=== PATIENT | female | born 1955 | race Two or more races ===

== ENCOUNTER 2020-02-15 20:29 | Inpatient (IN) | payer MEDICARE, OTHER ==
[~2020-02-15] VITALS: Ht 157.5 cm; Wt 78.3 kg
[2020-02-15 21:10] LABS: Basophils # (auto) 0 10 ^3/uL (0-0.2); Basophils % (auto) 0.7 % (0.0-2.0); Eosinophils # (auto) 0.2 10 ^3/uL (0-0.8); Eosinophils % (auto) 3.2 % (0.0-7.0); Hematocrit 27.1 % (36.0-46.0); Hemoglobin 9.1 g/dL (12.2-16.2); Lymphocytes # (auto) 1.6 10 ^3/uL (0.4-5.4); Lymphocytes % (auto) 23.5 % (10.0-50.0); Mean Corpuscular Hemoglobin 29.1 pg (28.0-32.0); Mean Corpuscular Hgb Conc. 33.5 g/dL (32.0-36.0); Mean Corpuscular Volume 86.6 fL (80.0-100.0); Monocytes # (auto) 0.3 10 ^3/uL (0-1.3); Neutrophils # (auto) 4.5 10 ^3/uL (1.6-8.6); Neutrophils % (auto) 67.6 % (37.0-80.0); Nucleated Red Blood Cells % 0.1 %; Platelet Count (auto) 418 10^3/uL (140-450); Red Blood Cells 3.13 10^6/uL (4.0-5.20); Red Cell Distribution Width 14.1 % (11.8-14.3); White Blood Cell 6.7 10^3/uL (4.4-10.8)
[2020-02-15 21:23] LABS: Albumin 2.5 g/dL (3.4-5.0); Calcium 8.1 mg/dL (8.5-10.1); Potassium 4.8 mmol/L (3.5-5.1)
[2020-02-15 21:28] LABS: BUN/Creatinine Ratio 15.6; Bilirubin, Total 0.3 mg/dL (0.2-1.0); Total Protein 6.6 g/dL (6.4-8.2)
[2020-02-15] MEDS ORDERED: HYDROcodone-ACET 5/325MG TAB PO ONE (21:30)
[2020-02-15] MEDS ORDERED: ALBUTEROL SULF 2.5 MG/0.5ML(0.5%) NEB SOLN NEB ONE (21:30)
[2020-02-15] MEDS ORDERED: IPRATROPIUM BROM 0.5 MG/2.5ML INH SOL NEB ONE (21:30)
[2020-02-15 22:00] LABS: Urine Bacteria MOD /hpf (None Seen); Urine Blood TRACE /uL (Negative); Urine Hyaline Cast MOD /lpf (0 - 2); Urine Mucus FEW (None Seen); Urine Specific Gravity 1.026 (1.001-1.035); Urine WBC 15 /hpf (0 - 5)
[2020-02-16] VITALS (7 sets, daily range): BP systolic 131–155; BP diastolic 66–85
[2020-02-16] MEDS ORDERED: MORPHINE SULF INJ 2 MG/ML SYRINGE 1ML IV PRN (01:30)
[2020-02-16] MEDS ORDERED: HYDROcodone-ACET 5/325MG TAB PO PRN (01:30)
[2020-02-16] MEDS ORDERED: ONDANSETRON HCL 4 MG/2 ML VIAL IV PRN (01:30)
[2020-02-16] MEDS ORDERED: DEXTROSE (50%) 50ML SYRG IV PRN ×2 (01:30→12:45)
[2020-02-16] MEDS ORDERED: DOCUSATE SOD 100 MG CAP PO PRN (01:30)
[2020-02-16] MEDS ORDERED: METF-370 PO (03:23)
[2020-02-16] MEDS ORDERED: METF-371 PO (03:23)
[2020-02-16] MEDS ORDERED: HYDR25TA4 PO (03:26)
[2020-02-16] MEDS ORDERED: LISI-646 PO (03:26)
[2020-02-16] MEDS ORDERED: INSU75IN2 SC (03:26)
[2020-02-16] MEDS ORDERED: PREG150C PO (03:26)
[2020-02-16] MEDS ORDERED: GABA100C9 PO (03:26)
[2020-02-16] MEDS ORDERED: ROSU40TA PO (03:26)
[2020-02-16] MEDS ORDERED: ASP81EC PO (03:26)
[2020-02-16] MEDS ORDERED: DULO60CA PO (03:26)
[2020-02-16] MEDS: SODIUM CHLORIDE 0.9% 1,000 ML IV SCH ×3 (03:43→21:21)
[2020-02-16] MEDS: cefTRIAXone 1GM/50ML D5W 50 ML IV SCH (04:32)
[2020-02-16] MEDS: ACCU-CHEK COMFORT CURVE STRIP VI SCH ×5 (04:32→22:25)
[2020-02-16] MEDS: InsuLIN REG 1unit/0.01ml Soln (100units/ml) SC SCH ×5 (04:34→22:36)
--- NOTE | 2020-02-16 06:51 | NUR ---
Closing note pt resting in semi fowlers, HOB elevated at 30 degrees. pt does not show signs and symptoms of discomfort. resp are even and non labored on 2Lnc. bed in low locked position, call light within reach.
--- NOTE | 2020-02-16 07:35 | NUR ---
PT ASSESSED FOR PRN HHN TX. PT IS ON 2LNC, SPO2 99%, HR 87, RR 16. NO S/S OF RESPIRATORY DISTRESS. PRN TX NOT INDICATED WILL CONTINUE TO MONITOR.
--- NOTE | 2020-02-16 08:00 | NUR ---
ASSESSMENT NOTE PT IS ALERT ORIENTED X4, RESTING IN BED IN LOWFOWLER POSITION, SELF REPOSITION, ABLE TO VERBALIS HER DEMANDS, PAIN 0/10, OXYGEN 2 L NC, PT GET SHORTNESS OF BREATH ON EVERSION, BED SIDE COMMODE AT BED SIDE, FALL RISK PRECAUTIONS, CALL LIGHT WITHIN REACH
[2020-02-16 08:11] LABS: Basophils # (auto) 0 10 ^3/uL (0-0.2); Hemoglobin 7.9 g/dL (12.2-16.2); Monocytes # (auto) 0.4 10 ^3/uL (0-1.3); Monocytes % (auto) 6.3 % (0.0-12.0); White Blood Cell 6.6 10^3/uL (4.4-10.8)
[2020-02-16 08:15] LABS: Basophils % (auto) 0.7 % (0.0-2.0); Eosinophils # (auto) 0.2 10 ^3/uL (0-0.8); Eosinophils % (auto) 3.1 % (0.0-7.0); Hematocrit 22.9 % (36.0-46.0); Lymphocytes # (auto) 1.6 10 ^3/uL (0.4-5.4); Lymphocytes % (auto) 23.8 % (10.0-50.0); Mean Corpuscular Hemoglobin 29.4 pg (28.0-32.0); Mean Corpuscular Hgb Conc. 34.4 g/dL (32.0-36.0); Mean Corpuscular Volume 85.7 fL (80.0-100.0); Neutrophils # (auto) 4.3 10 ^3/uL (1.6-8.6); Neutrophils % (auto) 66.1 % (37.0-80.0); Platelet Count (auto) 378 10^3/uL (140-450); Red Blood Cells 2.67 10^6/uL (4.0-5.20); Red Cell Distribution Width 13.9 % (11.8-14.3)
[2020-02-16 08:37] LABS: Calcium 7.7 mg/dL (8.5-10.1); Potassium 4.3 mmol/L (3.5-5.1)
[2020-02-16 08:40] LABS: BUN/Creatinine Ratio 15.4
[2020-02-16] MEDS ORDERED: PNEUMOCOCCAL VACC POLYS 25 MCG/0.5 ML VIAL IM ONE (09:00)
[2020-02-16] MEDS: LISINOPRIL 20 MG TAB PO SCH (09:48)
[2020-02-16] MEDS ORDERED: ATORVASTATIN 20 MG TAB PO SCH (10:00)
--- NOTE | 2020-02-16 11:35 | NUR ---
DR BEAULIEU AT BED SIDE FOLLOWING UP ON PT WITH NEW ORDERS
[2020-02-16 11:58] LABS: INR 0.99 (0.9-1.15); Partial Thromboplastin Time 29.9 sec (23.64-32.05)
[2020-02-16] MEDS: IPRATROPIUM BROM 0.5 MG/2.5ML INH SOL NEB PRN (12:03)
[2020-02-16] MEDS: ALBUTEROL SULF 2.5 MG/0.5ML(0.5%) NEB SOLN NEB PRN (12:03)
--- NOTE | 2020-02-16 12:05 | NUR ---
PT IS VERY SHORT OF BREATH RT AT BED SIDE WITH BREATHING TREATMENT
--- NOTE | 2020-02-16 12:39 | NUR ---
INCENTIVE SPIROMETR EDUCATED TO PT OF HOW TO USE IT AND WHY, PT VERBALIS UNDERSTANDING
--- NOTE | 2020-02-16 16:43 | NUR ---
HI D DIMER CALLED DR BEAULIEU WITH THE RESULTS, NEW ORDERS OBTAIN
[2020-02-16 18:07] LABS: Hematocrit 25.7 % (36.0-46.0); Hemoglobin 8.5 g/dL (12.2-16.2)
--- NOTE | 2020-02-16 18:09 | NUR ---
PT CONTINUE STABLE, CONTINUE MONITORING
--- NOTE | 2020-02-16 19:20 | NUR ---
Opening Shift Note Assumed care of patient. Patient awake and alert. No S/S of distress or pain. Oxygen via nasal cannula in place at 2lpm. Instructed on POC and to call for assist PRN, will continue to monitor for changes Q1hr and PRN. Bed locked in lowest position and bed rails up x2. Call light within reach.
[2020-02-16] MEDS: ATORVASTATIN 20 MG TAB PO SCH (22:25)
[2020-02-17] MEDS: cefTRIAXone 1GM/50ML D5W 50 ML IV SCH (02:18)
[2020-02-17 05:00] VITALS: BP 148/79
[2020-02-17] MEDS: ACCU-CHEK COMFORT CURVE STRIP VI SCH ×3 (06:32→17:50)
[2020-02-17 06:38] LABS: Basophils # (auto) 0.1 10 ^3/uL (0-0.2); Eosinophils # (auto) 0.3 10 ^3/uL (0-0.8); Eosinophils % (auto) 4.6 % (0.0-7.0); Hemoglobin 8.2 g/dL (12.2-16.2); Lymphocytes # (auto) 2.3 10 ^3/uL (0.4-5.4); Monocytes # (auto) 0.5 10 ^3/uL (0-1.3); Neutrophils # (auto) 4.4 10 ^3/uL (1.6-8.6); White Blood Cell 7.6 10^3/uL (4.4-10.8)
[2020-02-17 06:41] LABS: Basophils % (auto) 0.9 % (0.0-2.0); Hematocrit 23.9 % (36.0-46.0); Mean Corpuscular Hemoglobin 29.9 pg (28.0-32.0); Mean Corpuscular Hgb Conc. 34.4 g/dL (32.0-36.0); Mean Corpuscular Volume 86.9 fL (80.0-100.0); Monocytes % (auto) 6.8 % (0.0-12.0); Neutrophils % (auto) 57.7 % (37.0-80.0); Platelet Count (auto) 375 10^3/uL (140-450); Red Blood Cells 2.75 10^6/uL (4.0-5.20); Red Cell Distribution Width 14.4 % (11.8-14.3)
[2020-02-17] MEDS: InsuLIN REG 1unit/0.01ml Soln (100units/ml) SC SCH ×3 (06:56→18:09)
[2020-02-17] MEDS: SODIUM CHLORIDE 0.9% 1,000 ML IV SCH ×3 (08:00→20:30)
[2020-02-17 09:00] VITALS: BP 135/62
[2020-02-17] MEDS ORDERED: AZITHROMYCIN 500MG/ 250ML 250 ML IV ONE (09:15)
[2020-02-17] MEDS: LISINOPRIL 20 MG TAB PO SCH (09:40)
[2020-02-17] MEDS: methylPREDNISolone SOD SUCC 125 MG/2 ML VL IV SCH ×2 (09:42→21:27)
[2020-02-17] MEDS: BUDESONIDE (INHALATION) 0.5 MG/2 ML NEB NEB SCH ×2 (10:09→22:27)
[2020-02-17] MEDS: IPRATROPIUM BROM 0.5 MG/2.5ML INH SOL NEB PRN ×2 (10:09→22:27)
[2020-02-17] MEDS: ALBUTEROL SULF 2.5 MG/0.5ML(0.5%) NEB SOLN NEB PRN ×2 (10:09→22:27)
--- NOTE | 2020-02-17 12:00 | NUR ---
Patient having SOB, O2 sats 98%, RT paged, sat patient up on side of bed per patient breathing was easier patient stated she felt relief. MD Cai informed. No new orders received will continue to monitor .
[2020-02-17 13:00] VITALS: BP 143/61
[2020-02-17 17:00] VITALS: BP 142/63
--- NOTE | 2020-02-17 17:47 | NUR ---
THORACENTESIS DOCTOR KENDRICK AT BEDSIDE THORACENTESIS COMPLETE PER MD "10 CC OUT OF CLOTTED DEBRIS" POST VITALS 157/98 B/P 98 HR 20 RR 100% O2 ON ROOM AIR. V/S STABLE,NO S/S OF DISTRESS NOTED. NEW ORDERS RECEIVED SEE EMR FOR ORDERS.
--- NOTE | 2020-02-17 18:10 | NUR ---
RECEIVED CALL BACK FROM MEDICAL CARE ADMINISTRATOR HOSPITALIST DOCTOR AOUN. WINKLER INFORMED OF BLOOD GLUCOSE READING OF 417 AND REPEAT 443. NEW ORDERS RECEIVED SEE EMR FOR ORDERS.
[2020-02-17] MEDS ORDERED: DEXTROSE (50%) 50ML SYRG IV PRN ×2 (18:15→20:30)
[2020-02-17] MEDS ORDERED: InsuLIN REG 1unit/0.01ml Soln (100units/ml) IV ONE (18:15)
--- NOTE | 2020-02-17 19:30 | NUR ---
Opening Shift Note Assumed care of patient, awake and alert. No S/S of distress/SOB or pain. Insructed on POC and to callfor assist PRN, will continue to monitor for changes Q1hr and PRN. Fall and safety precautions in place. Call light within reach.
[2020-02-17] MEDS ORDERED: ACCU-CHEK COMFORT CURVE STRIP VI SCH (20:00)
[2020-02-17] MEDS ORDERED: InsuLIN REG 1unit/0.01ml Soln (100units/ml) SC SCH (20:00)
--- NOTE | 2020-02-17 20:00 | NUR ---
HOSPITALIST Paged construction manager hospitalist regarding blood sugar of 450, 462. 15 units of regular insulin given as ordered. Awaiting call back
--- NOTE | 2020-02-17 20:25 | NUR ---
HOSPITALIST Received call back from on-call hospitalist, Dr. Lopez. New orders received, read back and verified. Will input and carry out
[2020-02-17] MEDS: ATORVASTATIN 20 MG TAB PO SCH (21:28)
[2020-02-17 22:00] VITALS: BP 160/82
[2020-02-17] MEDS: INSULIN LANTUS (GLARGINE) 1 /0.01ml (100units/ml) SC SCH (22:08)
[2020-02-18] MEDS: ACCU-CHEK COMFORT CURVE STRIP VI SCH ×7 (00:30→23:43)
[2020-02-18] MEDS: InsuLIN REG 1unit/0.01ml Soln (100units/ml) SC SCH ×7 (00:32→23:44)
[2020-02-18] MEDS: cefTRIAXone 1GM/50ML D5W 50 ML IV SCH (01:48)
[2020-02-18] MEDS: SODIUM CHLORIDE 0.9% 1,000 ML IV SCH ×2 (03:36→08:24)
[2020-02-18 05:00] VITALS: BP 132/66
[2020-02-18 05:19] LABS: Basophils # (auto) 0 10 ^3/uL (0-0.2); Basophils % (auto) 0.1 % (0.0-2.0); Eosinophils # (auto) 0 10 ^3/uL (0-0.8); Lymphocytes # (auto) 0.5 10 ^3/uL (0.4-5.4); Monocytes # (auto) 0.1 10 ^3/uL (0-1.3); Neutrophils # (auto) 7.8 10 ^3/uL (1.6-8.6)
[2020-02-18 05:21] LABS: Hematocrit 24.8 % (36.0-46.0); Hemoglobin 8.3 g/dL (12.2-16.2); Lymphocytes % (auto) 5.4 % (10.0-50.0); Mean Corpuscular Hemoglobin 29.2 pg (28.0-32.0); Mean Corpuscular Hgb Conc. 33.4 g/dL (32.0-36.0); Mean Corpuscular Volume 87.5 fL (80.0-100.0); Monocytes % (auto) 1.1 % (0.0-12.0); Neutrophils % (auto) 93.4 % (37.0-80.0); Platelet Count (auto) 387 10^3/uL (140-450); Red Blood Cells 2.83 10^6/uL (4.0-5.20); Red Cell Distribution Width 14.1 % (11.8-14.3); White Blood Cell 8.4 10^3/uL (4.4-10.8)
[2020-02-18] MEDS: ACETAMINOPHEN 325 MG TAB PO PRN (05:56)
--- NOTE | 2020-02-18 08:25 | NUR ---
NS HELD. SURG TECH REPORTS ORDER WAS FOR 12 HRS AND TO DC AT 0830.
[2020-02-18 09:00] VITALS: BP 136/67
[2020-02-18] MEDS: AZITHROMYCIN 500MG/ 250ML 250 ML IV SCH (09:15)
[2020-02-18] MEDS: methylPREDNISolone SOD SUCC 125 MG/2 ML VL IV SCH ×2 (09:16→21:22)
[2020-02-18] MEDS: LISINOPRIL 20 MG TAB PO SCH (09:17)
--- NOTE | 2020-02-18 10:03 | NUR ---
DR GEORGES CAME AND DISCUSSED PATIENT, NEW ORDERS TO SEND URINE FOR LAB WORK AND ACCURATE INTAKE AND OUTPUT.
[2020-02-18] MEDS ORDERED: FUROSEMIDE 40 MG/4 ML VIAL IV SCH (10:30)
[2020-02-18] MEDS: IPRATROPIUM BROM 0.5 MG/2.5ML INH SOL NEB PRN ×2 (10:37→22:39)
[2020-02-18] MEDS: ALBUTEROL SULF 2.5 MG/0.5ML(0.5%) NEB SOLN NEB PRN ×2 (10:37→22:39)
[2020-02-18] MEDS: BUDESONIDE (INHALATION) 0.5 MG/2 ML NEB NEB SCH ×2 (10:37→22:39)
--- NOTE | 2020-02-18 10:40 | NUR ---
Respiratory note: PRN MED-NEB ADMINISTERED WITH 1000 PULMICORT MED FOR SOME SOB.
--- NOTE | 2020-02-18 10:48 | NUR ---
DR BEAULIEU SAW PATIENT AND DISCUSSED POC, NEW ORDERS TO GET ECHO READ. CALLED PBX AND PAGED DR FLORES, AWAITING CALL BACK.
--- NOTE | 2020-02-18 10:53 | NUR ---
DR FLORES CALLED BACK, REPORTS HE WILL READ ECHO THIS MORNING.
--- NOTE | 2020-02-18 11:05 | NUR ---
[facility] CALLED, THEY REPORT THEY WILL BE UP TO DO V/Q SCAN.
[2020-02-18 11:52] VITALS: BP 122/96
[2020-02-18] MEDS ORDERED: FUROSEMIDE 100 MG/10ML VIAL IV ONE (13:15)
[2020-02-18 14:03] LABS: BUN/Creatinine Ratio 17.7; Calcium 8.3 mg/dL (8.5-10.1); Potassium 4.2 mmol/L (3.5-5.1)
--- NOTE | 2020-02-18 14:23 | NUR ---
NOTIFIED DR BEAULIEU OF V/Q SCAN AND MD VIC REPORTS TO START PT ON LOVENOX 1MG/KG BID.
[2020-02-18] MEDS ORDERED: ENOXAPARIN SOD 80 MG/0.8ML SYRINGE SC ONE (14:40)
[2020-02-18 17:00] VITALS: BP 150/82
[2020-02-18] MEDS: ENOXAPARIN SOD 80 MG/0.8ML SYRINGE SC SCH (21:22)
[2020-02-18] MEDS: ATORVASTATIN 20 MG TAB PO SCH (21:23)
[2020-02-18 22:00] VITALS: BP 154/74
[2020-02-18] MEDS: INSULIN LANTUS (GLARGINE) 1 /0.01ml (100units/ml) SC SCH (22:11)
[2020-02-19] MEDS: cefTRIAXone 1GM/50ML D5W 50 ML IV SCH (01:34)
[2020-02-19] MEDS: ACETAMINOPHEN 325 MG TAB PO PRN (01:49)
[2020-02-19] MEDS: InsuLIN REG 1unit/0.01ml Soln (100units/ml) SC SCH ×5 (03:47→20:36)
[2020-02-19] MEDS: ACCU-CHEK COMFORT CURVE STRIP VI SCH ×5 (03:47→20:00)
[2020-02-19 05:00] VITALS: BP 124/74
[2020-02-19 06:12] LABS: Albumin 2.3 g/dL (3.4-5.0); Calcium 8.1 mg/dL (8.5-10.1)
[2020-02-19 06:16] LABS: BUN/Creatinine Ratio 20.7; Bilirubin, Total 0.2 mg/dL (0.2-1.0); Phosphorus 5.1 mg/dL (2.5-4.90); Total Protein 6.2 g/dL (6.4-8.2)
[2020-02-19] MEDS: BUDESONIDE (INHALATION) 0.5 MG/2 ML NEB NEB SCH ×2 (07:30→18:58)
--- NOTE | 2020-02-19 07:40 | NUR ---
Opening Shift Note Assumed care of patient. Patient is awake, alert, and oriented x4. Pt is resting in bed. No S/S of respiratory distress, respirations are regular and non labored. Patient on O2 2 lpm NC, does not state any pain or discomfort. Call light is within reach, bed brakes locked, bed in lower position, 2 side rails up. ID and fall wrist bands are present. Patient was instructed on POC and to call for assistance as needed. Will continue to monitor for changes Q1hr and PRN.
[2020-02-19 08:00] VITALS: BP 146/75
[2020-02-19 08:54] VITALS: BP 146/75
[2020-02-19] MEDS: ENOXAPARIN SOD 80 MG/0.8ML SYRINGE SC SCH (10:15)
[2020-02-19] MEDS: AZITHROMYCIN 500MG/ 250ML 250 ML IV SCH (10:15)
[2020-02-19] MEDS: FUROSEMIDE 100 MG/10ML VIAL IV SCH (10:16)
[2020-02-19] MEDS: LISINOPRIL 20 MG TAB PO SCH (10:17)
[2020-02-19] MEDS: methylPREDNISolone SOD SUCC 125 MG/2 ML VL IV SCH ×2 (10:17→21:30)
--- NOTE | 2020-02-19 10:36 | NUR ---
Dr. Nona Cai at bedside Discussing plan of care with patient and this RN. All questions and concerns addressed. Will continue to monitor Q1 hour and PRN.
[2020-02-19] MEDS ORDERED: ERGOCALCIFEROL 50,000 UNIT(1.25MG) CAP PO SCH (11:00)
[2020-02-19 11:03] VITALS: BP 144/71
--- NOTE | 2020-02-19 11:42 | NUR ---
Dr. Bob at nurse station Discussing plan of care with this RN. MD states patient should not have contrast due to decreased kidney function. Will continue to monitor Q1 hour and PRN.
[2020-02-19] MEDS: CALCIUM ACETATE 667 MG CAP PO SCH ×2 (12:10→17:38)
[2020-02-19 16:42] VITALS: BP 152/78
[2020-02-19] MEDS: IPRATROPIUM BROM 0.5 MG/2.5ML INH SOL NEB PRN (18:57)
[2020-02-19] MEDS: ALBUTEROL SULF 2.5 MG/0.5ML(0.5%) NEB SOLN NEB PRN (18:57)
--- NOTE | 2020-02-19 19:15 | NUR ---
Closing Note Report given to shift boss RN. No signs or symptoms of distress noted at this time.
[2020-02-19] MEDS: ATORVASTATIN 20 MG TAB PO SCH (21:32)
[2020-02-19] MEDS: INSULIN LANTUS (GLARGINE) 1 /0.01ml (100units/ml) SC SCH (21:33)
[2020-02-19 21:42] VITALS: BP 129/57
[2020-02-20] MEDS: ACCU-CHEK COMFORT CURVE STRIP VI SCH ×7 (04:01→23:50)
[2020-02-20] MEDS: cefTRIAXone 1GM/50ML D5W 50 ML IV SCH (04:01)
[2020-02-20] MEDS: InsuLIN REG 1unit/0.01ml Soln (100units/ml) SC SCH ×7 (04:21→23:50)
[2020-02-20 05:00] VITALS: BP 138/73
[2020-02-20 06:29] LABS: Calcium 8.1 mg/dL (8.5-10.1)
[2020-02-20 06:35] LABS: Albumin 2.2 g/dL (3.4-5.0); BUN/Creatinine Ratio 24.8; Bilirubin, Total 0.2 mg/dL (0.2-1.0); Total Protein 5.8 g/dL (6.4-8.2)
[2020-02-20] MEDS: IPRATROPIUM BROM 0.5 MG/2.5ML INH SOL NEB PRN ×2 (07:10→22:12)
[2020-02-20] MEDS: BUDESONIDE (INHALATION) 0.5 MG/2 ML NEB NEB SCH ×2 (07:10→22:12)
[2020-02-20] MEDS: ALBUTEROL SULF 2.5 MG/0.5ML(0.5%) NEB SOLN NEB PRN ×2 (07:10→22:12)
--- NOTE | 2020-02-20 07:16 | NUR ---
Opening Shift Note Assumed care of patient, patient is sitting in bed awake and alert. No S/S of distress or SOB, denies any pain at the moment. Instructed on POC and to call for assistance call light within reach. Will continue to monitor for changes Q1hr and PRN. Fall and safety precautions in place.
[2020-02-20] MEDS: CALCIUM ACETATE 667 MG CAP PO SCH ×3 (07:52→17:24)
[2020-02-20 09:00] VITALS: BP 148/85
[2020-02-20] MEDS: AZITHROMYCIN 250 MG TAB PO SCH (09:35)
[2020-02-20] MEDS: FUROSEMIDE 100 MG/10ML VIAL IV SCH (09:35)
[2020-02-20] MEDS: methylPREDNISolone SOD SUCC 125 MG/2 ML VL IV SCH ×2 (09:36→22:28)
[2020-02-20] MEDS: LISINOPRIL 20 MG TAB PO SCH (09:36)
[2020-02-20] MEDS ORDERED: ENOXAPARIN SOD 80 MG/0.8ML SYRINGE SC SCH (10:00)
--- NOTE | 2020-02-20 10:10 | NUR ---
Dr. Cai at Bedside.
[2020-02-20] MEDS: APIXABAN 5 MG TAB PO SCH ×2 (11:00→22:28)
--- NOTE | 2020-02-20 12:20 | NUR ---
Incentive Spirometer Educated patient in proper use of incentive spirometer, patient returned demonstration.
[2020-02-20 13:00] VITALS: BP 160/91
--- NOTE | 2020-02-20 14:39 | NUR ---
assessment Patient is a 64 year old female who is alert and oriented. Patients cognitive abilities are intact. Prior to admission patient lived home alone and functioned independently. Patient informed me she is able to care for her own ADLs. Per patient she will return home to her prior living arrangements post discharge and family will transport her home. Patient informed me she has no DME and needs a fww. Patient will benefit from a walker on discharge. Patients PCP is Dr Gann in [place]. Patient informed me she feels safe returning home on discharge. Patient may also benefit from home health safety on discharge. I informed patient she has a right to speak to a social science analyst regarding all care. I informed patient she has a right to participate in any and all discharge planning. Patient does not have a POA and advanced directive. I have offered patient information on POA and advanced directives. I informed the patient the advantages and benefits of having an Advanced Directive. Patient verbalized understanding and agreed to discharge plan. Addendum: 02/20/20 at 1453 by Radha BAIRD Amended: Links added.
--- NOTE | 2020-02-20 15:51 | NUR ---
NUTRITION ASSESSMENT NOTES Please refer to link notes of nutrition screen form filed under the intervention section of the plan of care for further details. Est. Energy Needs: 5100-8977 kcal (17-20 kcal/kg BW). Est. Protein Needs: 70-87 gms/day (1.2-1.5 gms/kg Adj.BW). Will continue to monitor pertinent labs and reassess nutrient need prn Addendum: 02/20/20 at [address] Amended: Links added.
[2020-02-20 16:40] VITALS: BP 136/77
--- NOTE | 2020-02-20 19:30 | NUR ---
Closing Note Report given to night shift supervisor RN. No signs or symptoms of distress noted at this time.
[2020-02-20 21:05] VITALS: BP 154/90
[2020-02-20] MEDS: ATORVASTATIN 20 MG TAB PO SCH (22:29)
[2020-02-20] MEDS: INSULIN LANTUS (GLARGINE) 1 /0.01ml (100units/ml) SC SCH (22:33)
[2020-02-21] MEDS: cefTRIAXone 1GM/50ML D5W 50 ML IV SCH (02:10)
[2020-02-21] MEDS: InsuLIN REG 1unit/0.01ml Soln (100units/ml) SC SCH ×3 (03:56→14:07)
[2020-02-21] MEDS: ACCU-CHEK COMFORT CURVE STRIP VI SCH ×3 (03:57→12:00)
--- NOTE | 2020-02-21 05:09 | NUR ---
Paged hospitalist to notify blood pressure is elevated and patient has no PRN for BP. Awaiting phone call.
[2020-02-21 05:18] VITALS: BP 183/92
--- NOTE | 2020-02-21 05:20 | NUR ---
Paged hospitalist to notify blood pressure is elevated and patient has no PRN for BP. Awaiting phone call.
[2020-02-21 05:27] VITALS: BP 183/92
--- NOTE | 2020-02-21 05:53 | NUR ---
Spoke to hospitaldarryl Devlin and notified him of patient blood pressure is 183/92, hr 87. Received order from hospitaldarryl Devlin to give one time dose of clonidine 0.1mg po. read back and confirmed. Will carry out.
[2020-02-21] MEDS ORDERED: cloNIDine HCL 0.1 MG TAB PO ONE (06:00)
[2020-02-21 06:57] LABS: Potassium 4.1 mmol/L (3.5-5.1)
[2020-02-21 07:03] LABS: Albumin 2.3 g/dL (3.4-5.0); BUN/Creatinine Ratio 27.1; Bilirubin, Total 0.2 mg/dL (0.2-1.0); Calcium 7.9 mg/dL (8.5-10.1); Total Protein 5.9 g/dL (6.4-8.2)
[2020-02-21 08:00] VITALS: BP 137/80
[2020-02-21] MEDS: CALCIUM ACETATE 667 MG CAP PO SCH ×2 (08:34→13:12)
[2020-02-21 09:00] VITALS: BP 137/80
[2020-02-21] MEDS: IPRATROPIUM BROM 0.5 MG/2.5ML INH SOL NEB PRN (09:48)
[2020-02-21] MEDS: ALBUTEROL SULF 2.5 MG/0.5ML(0.5%) NEB SOLN NEB PRN (09:48)
[2020-02-21] MEDS: BUDESONIDE (INHALATION) 0.5 MG/2 ML NEB NEB SCH (09:49)
[2020-02-21] MEDS: FUROSEMIDE 100 MG/10ML VIAL IV SCH (10:41)
[2020-02-21] MEDS: methylPREDNISolone SOD SUCC 125 MG/2 ML VL IV SCH (10:42)
[2020-02-21] MEDS: APIXABAN 5 MG TAB PO SCH (10:43)
[2020-02-21] MEDS: LISINOPRIL 20 MG TAB PO SCH (10:43)
[2020-02-21] MEDS: AZITHROMYCIN 250 MG TAB PO SCH (10:46)
[2020-02-21 12:54] VITALS: BP 137/80
[2020-02-21 13:00] VITALS: BP 161/98
--- NOTE | 2020-02-21 15:25 | NUR ---
PATIENT DISCHARGED HOME PER DOCTOR'S ORDER. COPIES OF DISCHARGE INSTRUCTION, FOLLOW UP, AND PRESCRIPTION GIVEN TO PATIENT. PATIENT VERBALIZED UNDERSTANDING. PATIENT'S OWN MEDICATION PICKED UP FROM PHARMACY AND GIVEN TO PATIENT ON DISCHARGE. PERIPHERAL IV DISCONTINUED AND PRESSURE DRESSING APPLIED.
== END 2020-02-21 15:25 | disposition home or self-care (01) | DRG 186 ==
LOC: ER 20:29 → OVERFLOW 20:30 → EAST 02-16 02:42
PROVIDERS: ADMIT Hospitalist; ATTEND Family Medicine
PROC: 0W9B3ZZ Drainage of Left Pleural Cavity, Percutaneous Approach (ICD-10-PCS; principal; 2020-02-17)
DX: J94.2 Hemothorax (principal); N17.0 Acute kidney failure with tubular necrosis; I26.99 Other pulmonary embolism without acute cor pulmonale; I31.3 Pericardial effusion (noninflammatory); N39.0 Urinary tract infection, site not specified; J98.11 Atelectasis; I13.0 Hypertensive heart and chronic kidney disease with heart failure and stage 1 through stage 4 chronic kidney disease, or unspecified chronic kidney disease; J90 Pleural effusion, not elsewhere classified; R06.03 Acute respiratory distress; D64.9 Anemia, unspecified; E11.40 Type 2 diabetes mellitus with diabetic neuropathy, unspecified; I50.9 Heart failure, unspecified; E86.0 Dehydration; D63.1 Anemia in chronic kidney disease; R80.9 Proteinuria, unspecified; S20.219A Contusion of unspecified front wall of thorax, initial encounter; E78.00 Pure hypercholesterolemia, unspecified; E11.22 Type 2 diabetes mellitus with diabetic chronic kidney disease; E66.9 Obesity, unspecified; E78.5 Hyperlipidemia, unspecified; W18.39XA Other fall on same level, initial encounter; E83.39 Other disorders of phosphorus metabolism; N18.9 Chronic kidney disease, unspecified; F32.9 Major depressive disorder, single episode, unspecified; Z82.49 Family history of ischemic heart disease and other diseases of the circulatory system; Z68.32 Body mass index [BMI] 32.0-32.9, adult; Y93.89 Activity, other specified; Y92.89 Other specified places as the place of occurrence of the external cause; Y99.8 Other external cause status
CPT/HCPCS: 10022; 36415; 71045; 71250; 74176; 76604; 76775; 76942; 78582; 80048; 80053; 80061; 81001; 82306; 82570; 82962; 83036; 83880; 83970; 84100; 84156; 84300; 84484; 85014; 85018; 85025; 85379; 85610; 85730; 86850; 86900; 86901; 87804; 93005; 93306; 93970; 94640; G0378; J0696; J1815

== ENCOUNTER 2020-12-25 15:04 | Inpatient (IN) | payer MEDICARE, OTHER ==
[~2020-12-25] VITALS: Ht 157.5 cm; Wt 98.3 kg
[~2020-12-25 15:04] MED LIST: ASPI-394 PO; DULO60CA PO; GABA100C9 PO; HYDR25TA4 PO; INSU75IN2 SC; LISI-646 PO; METF-370 PO; METF-371 PO; PREG150C PO; ROSU40TA PO
[2020-12-25] MEDS ORDERED: FUROSEMIDE 40 MG/4 ML VIAL IV ONE ×2 (15:15→18:30)
[2020-12-25 16:22] LABS: Eosinophils # (auto) 0.2 10 ^3/uL (0-0.8); Hemoglobin 7.1 g/dL (12.2-16.2); Monocytes # (auto) 0.4 10 ^3/uL (0-1.3); Neutrophils # (auto) 4.9 10 ^3/uL (1.6-8.6); White Blood Cell 6.5 10^3/uL (4.4-10.8)
[2020-12-25 16:24] LABS: Basophils # (auto) 0 10 ^3/uL (0-0.2); Basophils % (auto) 0.6 % (0.0-2.0); Eosinophils % (auto) 2.4 % (0.0-7.0); Mean Corpuscular Hemoglobin 29.9 pg (28.0-32.0); Mean Corpuscular Hgb Conc. 33.5 g/dL (32.0-36.0); Mean Corpuscular Volume 89.2 fL (80.0-100.0); Monocytes % (auto) 5.5 % (0.0-12.0); Neutrophils % (auto) 76.5 % (37.0-80.0); Platelet Count (auto) 346 10^3/uL (140-450); Red Blood Cells 2.36 10^6/uL (4.0-5.20); Red Cell Distribution Width 13.1 % (11.8-14.3)
[2020-12-25 16:26] LABS: Albumin 2.2 g/dL (3.4-5.0); Calcium 7.1 mg/dL (8.5-10.1); Potassium 5.5 mmol/L (3.5-5.1)
[2020-12-25 16:32] LABS: BUN/Creatinine Ratio 9.9; Bilirubin, Total 0.4 mg/dL (0.2-1.0); Total Protein 5.9 g/dL (6.4-8.2)
[2020-12-25] MEDS ORDERED: NITROGLYCERIN 0.4 MG SL TAB SL PRN (18:00)
[2020-12-25] MEDS ORDERED: MORPHINE SULF INJ 2 MG/ML SYRINGE 1ML IV PRN ×2 (18:00→18:15)
[2020-12-25] MEDS ORDERED: traMADol HCL 50 MG TAB PO PRN (18:15)
[2020-12-25] MEDS ORDERED: PANTOPRAZOLE 40 MG/10 ML VIAL INJ IV ONE (18:15)
[2020-12-25] MEDS ORDERED: ALBUTEROL SULF HFA 90MCG INH 200DOSE IN PRN (18:15)
[2020-12-25] MEDS ORDERED: TEMAZEPAM 15 MG CAP PO PRN (18:15)
[2020-12-25] MEDS ORDERED: DEXTROSE (50%) 50ML SYRG IV PRN (18:15)
[2020-12-25] MEDS ORDERED: PROMETHAZINE HCL 25 MG/ML 1ML IV PRN (18:15)
[2020-12-25] MEDS ORDERED: InsuLIN REG 1unit/0.01ml Soln (100units/ml) IV ONE (18:30)
[2020-12-25] MEDS ORDERED: ALBUTEROL SULF 2.5 MG/0.5ML(0.5%) NEB SOLN NEB ONE (18:30)
[2020-12-25] MEDS ORDERED: LACTULOSE 20Gm/30ML SOLN PO PRN (18:30)
[2020-12-25] MEDS ORDERED: SODIUM BICARBONATE 8.4% INJ 50ML SYRINGE IV ONE (18:30)
[2020-12-25] MEDS ORDERED: SODIUM ZIRCONIUM CYCL 10 GM PAK PO ONE (18:30)
[2020-12-25] MEDS ORDERED: DEXTROSE (50%) 50ML SYRG IV ONE (18:30)
[2020-12-25] MEDS: SODIUM CHLOR 0.9% PF (SALINE LOCK) 10ML VIAL/SYR IV SCH (20:32)
[2020-12-25] MEDS: ATORVASTATIN 20 MG TAB PO SCH (20:32)
[2020-12-25] MEDS: DOXYCYCLINE 100MG/250ML 250 ML IV SCH (20:32)
[2020-12-25 21:36] LABS: Urine Bacteria FEW /hpf (None Seen); Urine Blood TRACE /uL (Negative); Urine Specific Gravity 1.011 (1.001-1.035); Urine WBC 3 /hpf (0 - 5)
[2020-12-25 21:51] LABS: Potassium 4.1 mmol/L (3.5-5.1)
[2020-12-25 21:53] LABS: BUN/Creatinine Ratio 9.9
[2020-12-25] MEDS ORDERED: CARVEDILOL 3.125 MG TAB PO SCH (22:00)
[2020-12-25] MEDS ORDERED: BUDESONIDE (INHALATION) 180 MCG IH IN SCH (22:00)
[2020-12-25] MEDS: InsuLIN REG 1unit/0.01ml Soln (100units/ml) SC SCH (22:00)
[2020-12-25] MEDS ORDERED: LACT. RINGERS/OXYTOCIN 20UNITS 1,000 ML IV SCH (23:15)
[2020-12-25] MEDS: ACCU-CHEK COMFORT CURVE STRIP VI SCH (23:18)
[2020-12-25 23:56] VITALS: BP 115/58
[2020-12-26] VITALS (9 sets, daily range): BP systolic 117–166; BP diastolic 71–94
[2020-12-26 01:11] LABS: Hematocrit 20.3 % (36.0-46.0)
[2020-12-26 01:12] LABS: Hemoglobin 6.7 g/dL (12.2-16.2)
[2020-12-26 01:57] LABS: Basophils # (auto) 0 10 ^3/uL (0-0.2); Basophils % (auto) 0.6 % (0.0-2.0); Eosinophils # (auto) 0.2 10 ^3/uL (0-0.8); Eosinophils % (auto) 2.6 % (0.0-7.0); Hematocrit 19.6 % (36.0-46.0); Lymphocytes # (auto) 0.9 10 ^3/uL (0.4-5.4); Lymphocytes % (auto) 13.5 % (10.0-50.0); Mean Corpuscular Hemoglobin 29.2 pg (28.0-32.0); Mean Corpuscular Hgb Conc. 32.7 g/dL (32.0-36.0); Mean Corpuscular Volume 89.3 fL (80.0-100.0); Monocytes # (auto) 0.6 10 ^3/uL (0-1.3); Monocytes % (auto) 9.1 % (0.0-12.0); Neutrophils # (auto) 5.1 10 ^3/uL (1.6-8.6); Neutrophils % (auto) 74.2 % (37.0-80.0); Nucleated Red Blood Cells % 0.1 %; Platelet Count (auto) 313 10^3/uL (140-450); Red Cell Distribution Width 13.2 % (11.8-14.3); White Blood Cell 6.9 10^3/uL (4.4-10.8)
[2020-12-26 01:59] LABS: Hemoglobin 6.4 g/dL (12.2-16.2)
[2020-12-26] MEDS: SODIUM CHLOR 0.9% PF (SALINE LOCK) 10ML VIAL/SYR IV SCH ×3 (05:36→21:44)
[2020-12-26] MEDS: DOXYCYCLINE 100MG/250ML 250 ML IV SCH ×2 (05:36→17:51)
[2020-12-26] MEDS: FUROSEMIDE 40 MG/4 ML VIAL IV SCH ×2 (05:36→17:51)
[2020-12-26] MEDS: ACCU-CHEK COMFORT CURVE STRIP VI SCH ×4 (06:09→21:50)
[2020-12-26] MEDS: InsuLIN REG 1unit/0.01ml Soln (100units/ml) SC SCH ×4 (06:09→21:46)
[2020-12-26] MEDS ORDERED: INFLUENZA QUAD 2020-2021 0.5 ML SYRG IM ONE (06:45)
[2020-12-26 07:04] LABS: Albumin 2.1 g/dL (3.4-5.0); Calcium 7.3 mg/dL (8.5-10.1)
[2020-12-26 07:10] LABS: BUN/Creatinine Ratio 9.8; Bilirubin, Total 0.4 mg/dL (0.2-1.0)
[2020-12-26 07:16] LABS: Basophils # (auto) 0 10 ^3/uL (0-0.2); Eosinophils # (auto) 0.1 10 ^3/uL (0-0.8); Lymphocytes # (auto) 0.9 10 ^3/uL (0.4-5.4); Monocytes # (auto) 0.3 10 ^3/uL (0-1.3)
[2020-12-26 07:19] LABS: Basophils % (auto) 0.6 % (0.0-2.0); Eosinophils % (auto) 1.6 % (0.0-7.0); Hematocrit 21.2 % (36.0-46.0); Lymphocytes % (auto) 13.3 % (10.0-50.0); Mean Corpuscular Hemoglobin 29.2 pg (28.0-32.0); Mean Corpuscular Hgb Conc. 32.7 g/dL (32.0-36.0); Mean Corpuscular Volume 89.5 fL (80.0-100.0); Monocytes % (auto) 5.1 % (0.0-12.0); Neutrophils # (auto) 5.2 10 ^3/uL (1.6-8.6); Neutrophils % (auto) 79.4 % (37.0-80.0); Nucleated Red Blood Cells % 0.1 %; Platelet Count (auto) 331 10^3/uL (140-450); Red Blood Cells 2.37 10^6/uL (4.0-5.20); Red Cell Distribution Width 13.6 % (11.8-14.3); White Blood Cell 6.6 10^3/uL (4.4-10.8)
[2020-12-26 07:23] LABS: Hemoglobin 6.9 g/dL (12.2-16.2)
[2020-12-26] MEDS ORDERED: ZINC SULFATE 220mg CAP or TAB PO SCH (10:00)
[2020-12-26] MEDS ORDERED: ASCORBIC ACID 1,000 MG TAB PO SCH (10:00)
[2020-12-26] MEDS ORDERED: CHOLECALCIFEROL (VITD3) 2,000 UNIT CAP/TAB PO SCH (10:00)
[2020-12-26] MEDS ORDERED: NITROGLYCERIN 0.2MG/HR TOPICAL PATCH TD SCH (10:00)
[2020-12-26] MEDS: cefTRIAXone 1GM/50ML D5W 50 ML IV SCH (10:17)
[2020-12-26] MEDS: PANTOPRAZOLE 40 MG TAB PO SCH ×2 (10:18→21:44)
[2020-12-26 12:06] LABS: Sodium Urine 94 mmol/L (40-220)
[2020-12-26 12:18] LABS: Creatinine, Urine 32 mg/dL (30.0-125.0)
[2020-12-26 12:18] LABS: Hemoglobin 6.9 g/dL (12.2-16.2)
[2020-12-26 12:26] LABS: Protein, Urine 280.2 mg/dL (0.0-11.9)
[2020-12-26] MEDS: SODIUM FERR GLUC 62.5MG/5ML 125 MG in SODIUM CHL 0.9% 100 ML IV SCH (12:50)
[2020-12-26] MEDS: ACETAMINOPHEN 500 MG TAB PO PRN (21:05)
[2020-12-26] MEDS: ATORVASTATIN 20 MG TAB PO SCH (21:44)
[2020-12-27 05:00] VITALS: BP 133/81
[2020-12-27] MEDS: FUROSEMIDE 40 MG/4 ML VIAL IV SCH ×2 (06:01→18:12)
[2020-12-27] MEDS: SODIUM CHLOR 0.9% PF (SALINE LOCK) 10ML VIAL/SYR IV SCH ×3 (06:02→21:30)
[2020-12-27] MEDS: DOXYCYCLINE 100MG/250ML 250 ML IV SCH ×2 (06:02→18:12)
[2020-12-27] MEDS: InsuLIN REG 1unit/0.01ml Soln (100units/ml) SC SCH ×4 (06:36→21:25)
[2020-12-27] MEDS: ACCU-CHEK COMFORT CURVE STRIP VI SCH ×4 (06:39→21:28)
[2020-12-27 07:55] VITALS: BP 145/79
[2020-12-27] MEDS: cefTRIAXone 1GM/50ML D5W 50 ML IV SCH (10:31)
[2020-12-27] MEDS: PANTOPRAZOLE 40 MG TAB PO SCH ×2 (10:31→21:29)
[2020-12-27 11:13] LABS: Calcium 7.4 mg/dL (8.5-10.1); Potassium 4.5 mmol/L (3.5-5.1)
[2020-12-27 11:16] LABS: BUN/Creatinine Ratio 10.5; Bilirubin, Total 0.4 mg/dL (0.2-1.0)
[2020-12-27] MEDS: SODIUM FERR GLUC 62.5MG/5ML 125 MG in SODIUM CHL 0.9% 100 ML IV SCH (11:59)
[2020-12-27 16:00] VITALS: BP 132/88
[2020-12-27] MEDS: ATORVASTATIN 20 MG TAB PO SCH (21:29)
[2020-12-27] MEDS: ACETAMINOPHEN 500 MG TAB PO PRN (21:35)
[2020-12-27 22:00] VITALS: BP 155/79
[2020-12-28 00:49] VITALS: BP 135/90
[2020-12-28 05:00] VITALS: BP 128/65
[2020-12-28] MEDS: DOXYCYCLINE 100MG/250ML 250 ML IV SCH ×2 (05:48→17:42)
[2020-12-28] MEDS: SODIUM CHLOR 0.9% PF (SALINE LOCK) 10ML VIAL/SYR IV SCH ×3 (05:48→22:23)
[2020-12-28] MEDS: FUROSEMIDE 40 MG/4 ML VIAL IV SCH ×2 (05:48→17:41)
[2020-12-28] MEDS: ACCU-CHEK COMFORT CURVE STRIP VI SCH ×4 (05:49→22:23)
[2020-12-28] MEDS: InsuLIN REG 1unit/0.01ml Soln (100units/ml) SC SCH ×4 (06:02→22:23)
[2020-12-28 06:56] LABS: Hemoglobin 6.7 g/dL (12.2-16.2)
[2020-12-28 06:58] LABS: Albumin 1.6 g/dL (3.4-5.0); Calcium 7.4 mg/dL (8.5-10.1); Potassium 4.2 mmol/L (3.5-5.1)
[2020-12-28 07:01] LABS: BUN/Creatinine Ratio 10.9; Bilirubin, Total 0.4 mg/dL (0.2-1.0); Phosphorus 6.7 mg/dL (2.5-4.90); Total Protein 4.9 g/dL (6.4-8.2)
[2020-12-28 08:00] VITALS: BP 148/68
[2020-12-28] MEDS ORDERED: BUME2TAB5 PO (09:47)
[2020-12-28] MEDS: cefTRIAXone 1GM/50ML D5W 50 ML IV SCH (10:02)
[2020-12-28] MEDS: PANTOPRAZOLE 40 MG TAB PO SCH ×2 (10:02→22:13)
[2020-12-28] MEDS: SODIUM FERR GLUC 62.5MG/5ML 125 MG in SODIUM CHL 0.9% 100 ML IV SCH (13:02)
[2020-12-28 16:00] VITALS: BP 191/91
[2020-12-28 21:53] VITALS: BP 161/83
[2020-12-28] MEDS: ATORVASTATIN 20 MG TAB PO SCH (22:13)
[2020-12-28] MEDS: ACETAMINOPHEN 500 MG TAB PO PRN (22:13)
[2020-12-28 22:30] VITALS: BP 145/80
[2020-12-29 05:00] VITALS: BP 156/76
[2020-12-29] MEDS: FUROSEMIDE 40 MG/4 ML VIAL IV SCH ×2 (05:32→17:24)
[2020-12-29] MEDS: SODIUM CHLOR 0.9% PF (SALINE LOCK) 10ML VIAL/SYR IV SCH ×2 (05:32→14:58)
[2020-12-29] MEDS: DOXYCYCLINE 100MG/250ML 250 ML IV SCH ×2 (05:32→17:24)
[2020-12-29] MEDS: traMADol HCL 50 MG TAB PO PRN ×2 (05:58→09:55)
[2020-12-29] MEDS: ACCU-CHEK COMFORT CURVE STRIP VI SCH ×3 (06:22→17:23)
[2020-12-29] MEDS: InsuLIN REG 1unit/0.01ml Soln (100units/ml) SC SCH ×3 (06:24→17:24)
[2020-12-29 08:00] VITALS: BP 168/90
[2020-12-29 08:24] LABS: Albumin 1.8 g/dL (3.4-5.0); Potassium 4.1 mmol/L (3.5-5.1)
[2020-12-29 08:27] LABS: Bilirubin, Total 0.5 mg/dL (0.2-1.0); Phosphorus 6.6 mg/dL (2.5-4.90); Total Protein 5.6 g/dL (6.4-8.2)
[2020-12-29] MEDS: cefTRIAXone 1GM/50ML D5W 50 ML IV SCH (09:00)
[2020-12-29] MEDS: PANTOPRAZOLE 40 MG TAB PO SCH (09:55)
[2020-12-29] MEDS: SODIUM FERR GLUC 62.5MG/5ML 125 MG in SODIUM CHL 0.9% 100 ML IV SCH (12:00)
[2020-12-29 15:13] VITALS: BP 156/83
[2020-12-29 16:21] VITALS: BP 153/80
== END 2020-12-29 18:21 | disposition home health service (06) | DRG 186 ==
LOC: ER 15:04 → TELE 15:05 → TELE-EAST 23:30 → TELE-CENTR 12-29 05:46
PROVIDERS: ADMIT Internal Medicine; ATTEND Hospitalist
PROC: 0W9B3ZZ Drainage of Left Pleural Cavity, Percutaneous Approach (ICD-10-PCS; principal; 2020-12-26)
DX: J90 Pleural effusion, not elsewhere classified (principal); J96.01 Acute respiratory failure with hypoxia; I50.31 Acute diastolic (congestive) heart failure; N17.0 Acute kidney failure with tubular necrosis; I13.2 Hypertensive heart and chronic kidney disease with heart failure and with stage 5 chronic kidney disease, or end stage renal disease; N18.5 Chronic kidney disease, stage 5; Z20.822 Contact with and (suspected) exposure to COVID-19; E87.5 Hyperkalemia; D63.8 Anemia in other chronic diseases classified elsewhere; D63.1 Anemia in chronic kidney disease; E66.9 Obesity, unspecified; F32.9 Major depressive disorder, single episode, unspecified; E78.5 Hyperlipidemia, unspecified; E11.22 Type 2 diabetes mellitus with diabetic chronic kidney disease; Z53.1 Procedure and treatment not carried out because of patient's decision for reasons of belief and group pressure; Z68.29 Body mass index [BMI] 29.0-29.9, adult; Z82.49 Family history of ischemic heart disease and other diseases of the circulatory system; Z86.711 Personal history of pulmonary embolism; Z83.3 Family history of diabetes mellitus
CPT/HCPCS: 10022; 36415; 71045; 71250; 76604; 76775; 76942; 78582; 80048; 80053; 80061; 81001; 82270; 82306; 82550; 82570; 82728; 82962; 83036; 83880; 83970; 83986; 84100; 84156; 84300; 84484; 85014; 85018; 85025; 85045; 85379; 85610; 85652; 85730; 86141; 86850; 86900; 86901; 86920; 87070; 87077; 87186; 87205; 87426; 89051; 93005; 93970; 94640; 96374; 99291; C9113; G0378; J0696; J1815; J3490